=== PATIENT | female | born 1940 | race Caucasian/White ===

== ENCOUNTER 2022-03-23 14:25 | Emergency (ER) | payer MEDICARE, OTHER ==
[2022-03-23] MEDS ORDERED: ONDANSETRON 4 MG/2 ML VIAL IVP STA (15:28)
[2022-03-23] MEDS ORDERED: KETOROLAC 15 MG/ML 1 ML VIAL IVP STA (15:28)
[2022-03-23] MEDS ORDERED: diphenhydrAMINE 50 MG/ML 1 ML VIAL IVP STA (15:28)
[2022-03-23] MEDS ORDERED: SODIUM CHLORIDE 0.9% 500 ML 500 ML IV STA (15:28)
[2022-03-23] MEDS ORDERED: LIDOCAINE 5% PATCH TOPICAL SCH (15:30)
[2022-03-23] MEDS ORDERED: LORazepam 2 MG/ML INJ IV STA (15:30)
--- NOTE | 2022-03-23 18:31 | ED ---
General Adult HPI - General Chief complaint: Recheck/Abnormal Lab/Rx Stated complaint: migrane Time Seen by Provider: 03/23/22 14:52 Source: patient, EMS Mode of arrival: EMS Limitations: no limitations - History of Present Illness Initial comments: Patient is an 82 -year-old female who presents to the emergency department seeking medication refill. Patient states she recently moved to [place] from [place] tomorrow with her [id number]. States she was originally in a long-term or she was prescribed a fentanyl patch 30 mg every 3 days as well as daily Ativan. Patient states she did not get a prescription of these medications before leaving. She would like prescriptions of these medications today. States she uses fentanyl patch for chronic back pain. Denies recent injury. Currently anxious. Patient also mentions mild migraine. She normally takes Imitrex as abortive therapy which she is out of. States this migraine feels typical of her other migraines. Denies fever, chills, neck pain, double vision, blurry vision, numbness, tingling. Does admit to nausea. Denies vomiting. - Related Data Previous Rx's Medication Instructions Recorded SUMAtriptan succinate [Imitrex] 50 mg PO ONCE #7 tablet 03/23/22 Allergies Allergy/AdvReac Type Severity Reaction Status Date / Time Penicillins Allergy Unknown Rash/Hives Verified 03/23/22 18:34 Review of Systems ROS Statement: Those systems with pertinent positive or pertinent negative responses have been documented in the HPI. ROS Other: All systems not noted in ROS Statement are negative. General Exam Limitations: no limitations General appearance: alert, in no apparent distress Head exam: Present: atraumatic, normocephalic, normal inspection Eye exam: Present: normal appearance, PERRL, EOMI. Absent: scleral icterus, conjunctival injection, periorbital swelling Neck exam: Present: normal inspection, full ROM. Absent: tenderness, meningismus Respiratory exam: Present: normal lung sounds bilaterally. Absent: respiratory distress, wheezes, rales, rhonchi, stridor Cardiovascular Exam: Present: regular rate, normal rhythm, normal heart sounds. Absent: systolic murmur, diastolic murmur, rubs, gallop, clicks GI/Abdominal exam: Present: soft, normal bowel sounds. Absent: distended, tenderness, guarding, rebound, rigid Neurological exam: Present: alert, oriented X3, CN II-XII intact Psychiatric exam: Present: normal affect, normal mood Skin exam: Present: warm, dry, intact, normal color. Absent: rash Course Vital Signs 03/23/22 03/23/22 14:49 18:00 Temperature 97.0 F L Pulse Rate 80 81 Respiratory 17 18 Rate Blood Pressure 160/106 166/84 O2 Sat by Pulse 94 L 94 L Oximetry Medical Decision Making - Medical Decision Making This is a 82-year-old female presenting for medication refill and migraine. Patient given migraine cocktail and Ativan for anxiety. While receiving the medications she asked the nurse why she was not getting narcotics. Her migraine did improve. Patient and I discussed her medication refill requests in detail. I informed patient that I will give her one patch to wear today however I am unable to prescribe her this medication to go home with. I am willing to send a few Ativan 0.5 mg to get her through until she is able to establish care with a primary care provider. I will also prescribe a short course of Imitrex for migraine. She verbalizes understanding. Dr. Pat is my attending. Disposition Clinical Impression: Migraine, Encounter for medication refill Disposition: HOME SELF-CARE Condition: Good Instructions (If sedation given, give patient instructions): Migraine Headache (ED) Additional Instructions: Please take medication as directed. It is very important to establish with a primary care here who can prescribe your Ativan, Imitrex, and fentanyl patch long-term. Return to the emergency department if you experience new, concerning, or worsening symptoms. Prescriptions: SUMAtriptan succinate [Imitrex] 50 mg PO ONCE #7 tablet Is patient prescribed a controlled substance at d/c from ED?: Yes If prescribed controlled substance>3 days was MAPS reviewed?: Prescribed <3 Days Referrals: Nonstaff,Physician [Primary Care Provider] - 1-2 days Time of Disposition: 18:31
[2022-03-23 18:33] VITALS: BP 166/84; PULSE 81; RESP 18; TEMP 97
[2022-03-23] MEDS ORDERED: SUMAtriptan succinate 50 MG TAB PO STA (19:20)
== END 2022-03-23 20:46 | disposition home or self-care (01) ==
LOC: EC 14:25
DX: G43.909 Migraine, unspecified, not intractable, without status migrainosus (principal); Z76.0 Encounter for issue of repeat prescription; Z88.0 Allergy status to penicillin
CPT/HCPCS: 99283; 96374; 96375 ×3; 96361 ×2; J2060; J1200; J2405; J1885

== ENCOUNTER 2022-03-24 13:38 | Emergency (ER) | payer MEDICARE, OTHER ==
[2022-03-24 13:53] VITALS: RESP 18; TEMP 98.6
--- NOTE | 2022-03-24 14:13 | ED ---
General Adult HPI - General Chief complaint: Anxiety Stated complaint: anxiety, headache Time Seen by Provider: 03/24/22 13:52 Source: patient, EMS Mode of arrival: EMS Limitations: no limitations - History of Present Illness Initial comments: Dictation was produced using [employer] dictation software. please excuse any grammatical, word or spelling errors. Chief Complaint: 82-year-old male presents emergency department for hypertension and headache History of Present Illness: It is a 82-year-old female she was seen here yesterday for anxiety. Patient states she ran out of her anxiety medications. Patient's here today was 2 hours prior to arrival she again experiencing a headache. Patient is history of migraines but states that her headache is different from her usual headaches. According to chart review patient just moved here from [place]. Patient states she feels anxious. The ROS documented in this emergency department record has been reviewed and confirmed by me. Those systems with pertinent positive or negative responses have been documented in the HPI. All other systems are other negative and/or noncontributory. PHYSICAL EXAM: General Impression: Alert and oriented x3, not in acute distress HEENT: Normocephalic atraumatic, extra-ocular movements intact, pupils equal and reactive to light bilaterally, mucous membranes moist. Cardiovascular: Heart regular rate and rhythm Chest: Able to complete full sentences, no retractions, no tachypnea Abdomen: abdomen soft, non-tender, non-distended, no organomegaly Musculoskeletal: Pulses present and equal in all extremities, no peripheral edema Motor: no focal deficits noted Neurological: CN II-XII grossly intact, no focal motor or sensory deficits noted Skin: Intact with no visualized rashes Psych: Normal affect and mood ED course:82-year-old female presents emergency department for chief complaint of headache and hypertension. She reports that her symptoms started 2 hours prior to arrival. Patient also complaining of benzodiazepine withdrawal. Vital signs upon arrival shows blood pressure 180/104, rest of vital signs within acceptable limits. Patient reports that she takes medications for blood pressure. Computed tomography scan of brain is unremarkable. Patient evaluated bedside at 3:25 PM. Patient is within acceptable limits. Patient complaining that she is withdrawing from benzodiazepines. She is told to follow up with outpatient provider for outpatient management. Patient is showing signs of severe withdrawal. Blood pressure stable. Patient is not showing signs of hypertensive emergency. Critical Care: no Critical Care time: n/a - Related Data Previous Rx's Medication Instructions Recorded SUMAtriptan succinate [Imitrex] 50 mg PO ONCE #7 tablet 03/23/22 Allergies Allergy/AdvReac Type Severity Reaction Status Date / Time Penicillins Allergy Unknown Rash/Hives Verified 03/23/22 18:34 Review of Systems ROS Statement: Those systems with pertinent positive or pertinent negative responses have been documented in the HPI. ROS Other: All systems not noted in ROS Statement are negative. General Exam Limitations: no limitations Course Vital Signs 03/24/22 13:45 Temperature 98.6 F Pulse Rate 83 Respiratory 18 Rate Blood Pressure 188/104 O2 Sat by Pulse 95 Oximetry Disposition Clinical Impression: Benzodiazepine dependence Disposition: HOME SELF-CARE Condition: Fair Instructions (If sedation given, give patient instructions): Generalized Anxiety Disorder (ED), Benzodiazepine Abuse (ED) Is patient prescribed a controlled substance at d/c from ED?: No Referrals: Nonstaff,Physician [Primary Care Provider] - 1-2 days Time of Disposition: 15:26
--- NOTE | 2022-03-24 14:28 | CT ---
EXAMINATION TYPE: CT brain wo con DATE OF EXAM: 03/24/2022 COMPARISON: None HISTORY: headache CT DLP: 1115.4 mGycm Automated exposure control for dose reduction was used. There is cerebral cortical atrophy. There is moderate hypodensity throughout the periventricular whit e matter. There is no mass effect or midline shift. No sign of intracranial hemorrhage. The calvarium is intact. There is normal aeration of the mastoid sinuses. IMPRESSION: Cerebral atrophy and chronic small vessel ischemia. No acute intracranial abnormality.
[2022-03-24] MEDS ORDERED: LORazepam 2 MG/ML INJ IM STA (15:24)
[2022-03-24 17:43] VITALS: BP 182/68; PULSE 78
== END 2022-03-24 17:43 | disposition home or self-care (01) ==
LOC: EC 13:38
DX: F13.20 Sedative, hypnotic or anxiolytic dependence, uncomplicated (principal); Z88.0 Allergy status to penicillin
CPT/HCPCS: 70450; 99284; 96372; J2060

== ENCOUNTER 2022-03-26 08:44 | Emergency (ER) | payer MEDICARE, OTHER ==
[2022-03-26] MEDS ORDERED: SODIUM CHLORIDE 0.9% 1,000 ML IV STA ×2 (08:58)
[2022-03-26 09:00] VITALS: PULSE 73; TEMP 98.2
--- NOTE | 2022-03-26 09:02 | ED ---
Female Urogenital HPI - General Stated complaint: UTI Time Seen by Provider: 03/26/22 08:44 Source: patient, EMS, RN notes reviewed Mode of arrival: EMS - History of Present Illness Initial comments: 82-year-old female history UTI in the past who states she's had dysuria since yesterday now with nausea. She has lower abdominal pain also no overt fevers chills or sweats she does admit to decreased oral intake at least since chest today. She was noted by paramedics have an elevated blood pressure. She did take her medication she states this morning. No other complaints or modifying factors at this time MD Complaint: dysuria, other - Related Data Previous Rx's Medication Instructions Recorded SUMAtriptan succinate [Imitrex] 50 mg PO ONCE #7 tablet 03/23/22 Cephalexin [Keflex] 500 mg PO Q6HR 1 Days #40 cap 03/26/22 Allergies Allergy/AdvReac Type Severity Reaction Status Date / Time Penicillins Allergy Unknown Rash/Hives Verified 03/26/22 09:00 Review of Systems ROS Statement: Those systems with pertinent positive or pertinent negative responses have been documented in the HPI. ROS Other: All systems not noted in ROS Statement are negative. General Exam - General Exam Comments Initial Comments: This a well-developed nourished awake alert oriented 4 female General appearance: alert, in no apparent distress Head exam: Present: atraumatic, normocephalic, normal inspection Eye exam: Present: normal appearance, PERRL, EOMI. Absent: scleral icterus, conjunctival injection, periorbital swelling ENT exam: Present: mucous membranes dry Neck exam: Present: normal inspection. Absent: tenderness, meningismus, lympha denopathy Respiratory exam: Present: normal lung sounds bilaterally. Absent: respiratory distress, wheezes, rales, rhonchi, stridor Cardiovascular Exam: Present: regular rate, normal rhythm, normal heart sounds. Absent: systolic murmur, diastolic murmur, rubs, gallop, clicks GI/Abdominal exam: Present: soft, tenderness (Mild tenderness to palpation of the suprapubic region no guarding rebound masses or bruits), normal bowel sounds. Absent: distended, guarding, rebound, rigid Extremities exam: Present: normal inspection, full ROM, normal capillary refill. Absent: tenderness, pedal edema, joint swelling, calf tenderness Back exam: Present: normal inspection Neurological exam: Present: alert, oriented X3, CN II-XII intact Psychiatric exam: Present: normal affect, normal mood Skin exam: Present: warm, dry, intact, normal color. Absent: rash Course Vital Signs 03/26/22 08:52 Temperature 98.2 F Pulse Rate 73 Respiratory 18 Rate Blood Pressure 190/139 O2 Sat by Pulse 97 Oximetry Medical Decision Making - Medical Decision Making Patient blood pressure has responded to IV fluids patient believes she may be withdrawing because she did not get Ativan or fentanyl after she was discharged from a nursing facility 2 weeks ago. Patient does have an established physician who she is scheduled to see tomorrow. She will be discharged. We did discuss the fact that primary physician should be prescribing this type of medication on a long-term basis. She seemed to agree and understand. Additionally there is evidence of UTI she'll be placed on Keflex. She has had this before - Lab Data Result diagrams: 03/26/22 09:00 03/26/22 09:00 Lab Results 03/26/22 03/26/22 03/26/22 Range/Units 09:00 09:00 09:00 WBC 6.9 (3.8-10.6) k/uL RBC 5.46 H (3.80-5.40) m/uL Hgb 16.1 H (11.4-16.0) gm/dL Hct 48.7 H (34.0-46.0) % MCV 89.3 (80.0-100.0) fL MCH 29.5 (25.0-35.0) pg MCHC 33.0 (31.0-37.0) g/dL RDW 13.6 (11.5-15.5) % Plt Count 250 (150-450) k/uL MPV 7.6 Neutrophils % 52 % Lymphocytes % 37 % Monocytes % 6 % Eosinophils % 2 % Basophils % 1 % Neutrophils # 3.6 (1.3-7.7) k/uL Lymphocytes # 2.6 (1.0-4.8) k/uL Monocytes # 0.4 (0-1.0) k/uL Eosinophils # 0.2 (0-0.7) k/uL Basophils # 0.1 (0-0.2) k/uL Sodium 141 (137-145) mmol/L Potassium 4.1 (3.5-5.1) mmol/L Chloride 106 (98-107) mmol/L Carbon Dioxide 27 (22-30) mmol/L Anion Gap 8 mmol/L BUN 17 (7-17) mg/dL Creatinine 0.80 (0.52-1.04) mg/dL Est GFR (CKD-EPI)AfAm 80 (>60 ml/min/1.73 sqM) Est GFR (CKD-EPI)NonAf 70 (>60 ml/min/1.73 sqM) Glucose 100 H (74-99) mg/dL Calcium 9.8 (8.4-10.2) mg/dL Magnesium 1.9 (1.6-2.3) mg/dL Total Bilirubin 1.0 (0.2-1.3) mg/dL AST 28 (14-36) U/L ALT 14 (4-34) U/L Alkaline Phosphatase 87 (38-126) U/L Creatine Kinase 56 (30-135) U/L Troponin I (0.000-0.034) ng/mL Total Protein 7.5 (6.3-8.2) g/dL Albumin 4.6 (3.5-5.0) g/dL Lipase 87 (23-300) U/L Urine Color Light Yellow Urine Appearance Cloudy H (Clear) Urine pH 7.0 (5.0-8.0) Ur Specific [place] 1.014 (1.001-1.035) Urine Protein Negative (Negative) Urine Glucose (UA) Negative (Negative) Urine Ketones Negative (Negative) Urine Blood Negative (Negative) Urine Nitrite Negative (Negative) Urine Bilirubin Negative (Negative) Urine Urobilinogen <2.0 (<2.0) mg/dL Ur Leukocyte Esterase Moderate H (Negative) Urine RBC 1 (0-5) /hpf Urine WBC 20 H (0-5) /hpf Ur Squamous Epith Cells 2 (0-4) /hpf Urine Bacteria Occasional H (None) /hpf 03/26/22 Range/Units 09:00 WBC (3.8-10.6) k/uL RBC (3.80-5.40) m/uL Hgb (11.4-16.0) gm/dL Hct (34.0-46.0) % MCV (80.0-100.0) fL MCH (25.0-35.0) pg MCHC (31.0-37.0) g/dL RDW (11.5-15.5) % Plt Count (150-450) k/uL MPV Neutrophils % % Lymphocytes % % Monocytes % % Eosinophils % % Basophils % % Neutrophils # (1.3-7.7) k/uL Lymphocytes # (1.0-4.8) k/uL Monocytes # (0-1.0) k/uL Eosinophils # (0-0.7) k/uL Basophils # (0-0.2) k/uL Sodium (137-145) mmol/L Potassium (3.5-5.1) mmol/L Chloride (98-107) mmol/L Carbon Dioxide (22-30) mmol/L Anion Gap mmol/L BUN (7-17) mg/dL Creatinine (0.52-1.04) mg/dL Est GFR (CKD-EPI)AfAm (>60 ml/min/1.73 sqM) Est GFR (CKD-EPI)NonAf (>60 ml/min/1.73 sqM) Glucose (74-99) mg/dL Calcium (8.4-10.2) mg/dL Magnesium (1.6-2.3) mg/dL Total Bilirubin (0.2-1.3) mg/dL AST (14-36) U/L ALT (4-34) U/L Alkaline Phosphatase (38-126) U/L Creatine Kinase (30-135) U/L Troponin I 0.014 (0.000-0.034) ng/mL Total Protein (6.3-8.2) g/dL Albumin (3.5-5.0) g/dL Lipase (23-300) U/L Urine Color Urine Appearance (Clear) Urine pH (5.0-8.0) Ur Specific [place] (1.001-1.035) Urine Protein (Negative) Urine Glucose (UA) (Negative) Urine Ketones (Negative) Urine Blood (Negative) Urine Nitrite (Negative) Urine Bilirubin (Negative) Urine Urobilinogen (<2.0) mg/dL Ur Leukocyte Esterase (Negative) Urine RBC (0-5) /hpf Urine WBC (0-5) /hpf Ur Squamous Epith Cells (0-4) /hpf Urine Bacteria (None) /hpf - EKG Data -: EKG Interpreted by Me EKG shows normal: sinus rhythm EKG Comments: I did interpret the EKG shows a normal sinus rhythm of 70 AR interval 175 QRS duration 80 QT since QTC 460/[address]-T wave changes - Radiology Data Radiology results: image reviewed (I did interpret the imaging no acute processes seen.) Disposition Clinical Impression: Urinary tract infection, Episode of hypertension, Dehydration, Abdominal pain Disposition: HOME SELF-CARE Condition: Good Instructions (If sedation given, give patient instructions): Urinary Tract Infection in Women (ED), Dehydration (ED) Prescriptions: Cephalexin [Keflex] 500 mg PO Q6HR 1 Days #40 cap Is patient prescribed a controlled substance at d/c from ED?: No Referrals: Sonny Rodríguez MD [Primary Care Provider] - 03/27/22 1:00 pm Decision Date: 03/26/22 Decision Time: 11:51
[2022-03-26 09:31] LABS: Basophils # (A) 0.1 k/uL (0-0.2); Basophils % (A) 1 %; Eosinophils # (A) 0.2 k/uL (0-0.7); Eosinophils % (A) 2 %; HCT 48.7 % (34.0-46.0); HGB 16.1 gm/dL (11.4-16.0); Lymphocytes # (A) 2.6 k/uL (1.0-4.8); Lymphocytes % (A) 37 %; MCH 29.5 pg (25.0-35.0); MCV 89.3 fL (80.0-100.0); Mean Platelet Volume 7.6; Monocytes # (A) 0.4 k/uL (0-1.0); Monocytes % (A) 6 %; Neutrophils # (A) 3.6 k/uL (1.3-7.7); Neutrophils % (A) 52 %; Platelet Count 250 k/uL (150-450); RBC 5.46 m/uL (3.80-5.40); RDW 13.6 % (11.5-15.5); WBC 6.9 k/uL (3.8-10.6)
[2022-03-26 09:56] LABS: Albumin 4.6 g/dL (3.5-5.0); Appearance,Urine Cloudy (Clear); Bacteria,Urine Occasional /hpf; Bilirubin,Urine Negative (Negative); Blood,Urine Negative (Negative); Calcium 9.8 mg/dL (8.4-10.2); Color,Urine Light Yellow; Glucose,Urine (UA) Negative (Negative); Ketones,Urine Negative (Negative); Leukocyte Esterase,Urine Moderate (Negative); Magnesium 1.9 mg/dL (1.6-2.3); Nitrite,Urine Negative (Negative); Potassium 4.1 mmol/L (3.5-5.1); Protein,Urine Negative (Negative); RBC,Urine 1 /hpf (0-5); Specific Gravity,Urine 1.014 (1.001-1.035); Squamous Epithelial Cell,Urine 2 /hpf (0-4); Total Protein 7.5 g/dL (6.3-8.2); Urobilinogen,Urine <2.0 mg/dL (<2.0); WBC,Urine 20 /hpf (0-5)
--- NOTE | 2022-03-26 09:58 | XR ---
EXAMINATION TYPE: XR chest 2V DATE OF EXAM: 03/26/2022 9:53 AM COMPARISON: None TECHNIQUE: XR chest 2V Frontal and lateral views of the chest. CLINICAL INDICATION:Female, 82 years old with history of Nausea and abdominal pain; FINDINGS: Lungs/Pleura: There is no evidence of pleural effusion, focal consolidation, or pneumothorax. Chronic -appearing senescent parenchymal changes. Pulmonary vascularity: Unremarkable. Heart/mediastinum: Cardiomediastinal silhouette is unremarkable. Atherosclerotic calcifications are seen in the aorta. Musculoskeletal: Multiple level degenerative disc disease changes seen throughout the spine. Other: Surgical clips in the right upper quadrant. IMPRESSION: Chronic changes without evidence for acute cardiopulmonary process.
--- NOTE | 2022-03-26 09:59 | XR ---
EXAMINATION TYPE: XR KUB DATE OF EXAM: 03/26/2022 COMPARISON: NONE HISTORY: Nausea and abdominal pain TECHNIQUE: Upright AP view of the abdomen was obtained with 2 radiographs. FINDINGS: Small bowel demonstrates no evidence for dilatation or air fluid levels. Gas and fecal material is seen in non-distended colon. No convincing evidence for pneumoperitoneum. Surgical clips in the right upper quadrant. Likely pelvic phleboliths. Calcifications in the left upp er quadrant likely splenic granulomas. The lung bases are clear. The osseous structures are intact. Degenerative changes of the visualized spine. IMPRESSION: Overall nonobstructive bowel gas pattern.
[2022-03-26] MEDS ORDERED: cefTRIAXone IN SWFI 1,000 MG/10 ML SYRINGE IVP STA (10:18)
[2022-03-26] MEDS ORDERED: fentaNYL (PF) 50 MCG/ML 2 ML AMP IV STA (10:43)
[2022-03-26] MEDS ORDERED: LORazepam 1 MG TAB PO STA (11:51)
[2022-03-26 12:25] VITALS: BP 129/75; RESP 16
== END 2022-03-26 12:28 | disposition home or self-care (01) ==
LOC: EC 08:44
DX: N39.0 Urinary tract infection, site not specified (principal); I10 Essential (primary) hypertension; E86.0 Dehydration; R10.9 Unspecified abdominal pain; Z88.0 Allergy status to penicillin
CPT/HCPCS: 36415; 93005; 80053; 82550; 83690; 83735; 84484; 85025; 81001; 87086; 87077; 87186; 71046; 74018; 99284; 96374; 96375; 96361; J0696; J3010

== ENCOUNTER 2022-03-29 11:44 | Emergency (ER) | payer MEDICARE ==
[2022-03-29 11:56] VITALS: TEMP 97.7
[2022-03-29 11:58] VITALS: RESP 20
--- NOTE | 2022-03-29 12:19 | ED ---
General Adult HPI - General Chief complaint: Headache Stated complaint: Headache Time Seen by Provider: 03/29/22 11:47 Source: patient Mode of arrival: EMS Limitations: no limitations - History of Present Illness Initial comments: Dictation was produced using [employer] dictation software. please excuse any grammatical, word or spelling errors. Chief Complaint: 82-year-old female recently well-known to emergency Department for history of benzodiazepine dependence presents to the ER for 2 hours of headache History of Present Illness: 82-year-old female presents via EMS. Patient presents to the ER department for chief complaint of 2 hours of headache. This is patient's fourth visit here in the last 4 days. States that she is here today cut she's has a headache. States his whole cranial. She also reports associated anxiety. The ROS documented in this emergency department record has been reviewed and confirmed by me. Those systems with pertinent positive or negative responses have been documented in the HPI. All other systems are other negative and/or noncontributory. PHYSICAL EXAM: General Impression: Alert and oriented x3, not in acute distress HEENT: Normocephalic atraumatic, extra-ocular movements intact, pupils equal and reactive to light bilaterally, mucous membranes moist. Cardiovascular: Heart regular rate and rhythm Chest: Able to complete full sentences, no retractions, no tachypnea Abdomen: abdomen soft, non-tender, non-distended, no organomegaly Musculoskeletal: Pulses present and equal in all extremities, no peripheral edema Motor: no focal deficits noted Neurological: CN II-XII grossly intact, no focal motor or sensory deficits noted Skin: Intact with no visualized rashes Psych: Normal affect and mood ED course: 82-year-old male presents to the emergency department for headache and anxiety. Vital signs upon arrival are within acceptable limits. Chart review was performed. Patient is presented to our emergency department 4 times in the last 4 days. Computed tomography scan is unremarkable. Patient discharged. Critical Care: no Critical Care time: n/a - Related Data Previous Rx's Medication Instructions Recorded SUMAtriptan succinate [Imitrex] 50 mg PO ONCE #7 tablet 03/23/22 Cephalexin [Keflex] 500 mg PO Q6HR 1 Days #40 cap 03/26/22 Allergies Allergy/AdvReac Type Severity Reaction Status Date / Time Penicillins Allergy Unknown Rash/Hives Verified 03/26/22 09:00 Review of Systems ROS Statement: Those systems with pertinent positive or pertinent negative responses have been documented in the HPI. ROS Other: All systems not noted in ROS Statement are negative. Past Medical History Past Medical History: Cancer, COPD, Hypertension Additional Past Medical History / Comment(s): Ulcerative colitits, hiatal hernia, cervical cancer History of Any Multi-Drug Resistant Organisms: C-DIFF Date of last positivie culture/infection: 2017 Past Surgical History: Back Surgery, Cholecystectomy, Joint Replacement, Orthopedic Surgery Past Psychological History: Anxiety Smoking Status: Former smoker Past Alcohol Use History: None Reported Past Drug Use History: None Reported General Exam Limitations: no limitations Course Vital Signs 03/29/22 03/29/22 11:50 11:56 Temperature 97.7 F Pulse Rate 116 H 116 H Respiratory 18 20 Rate Blood Pressure 99/76 99/76 O2 Sat by Pulse 96 96 Oximetry Disposition Clinical Impression: Headache Disposition: HOME SELF-CARE Condition: Good Instructions (If sedation given, give patient instructions): Acute Headache (ED) Is patient prescribed a controlled substance at d/c from ED?: No Referrals: None,Stated [Primary Care Provider] - 1-2 days Time of Disposition: 12:53
--- NOTE | 2022-03-29 12:45 | CT ---
EXAMINATION TYPE: CT brain wo con DATE OF EXAM: 03/29/2022 COMPARISON: 03/24/2022 HISTORY: 82-year-old female headache for 2 hours TECHNIQUE: Examination was done in axial plane without intravenous contrast. Coronal and sagittal r econstructions performed. CT DLP: 1125.4 mGycm Automated exposure control for dose reduction was used. FINDINGS: There is no evidence of acute intracranial hemorrhage, acute ischemic changes, mass, mass-effect, or extra-axial fluid collection. There is no effacement of cerebral sulci or basal subarachnoid cister ns. There is no midline shift. Kamara-white matter distinction is preserved. Moderate to severe bifrontal cerebral atrophy. Mild hydrocephalus, Infante ratio calculated at 0.34, un changed from recent prior. Confluent white matter hypodensities in both cervical hemispheres. Partia lly empty sella. Scattered mild mucosal thickening ethmoid air cells. Leftward nasal septal deviation. Mastoid air saman ls are pneumatized. The globes are intact. IMPRESSION: 1. Similar mild hydrocephalus likely on an ex vacuo basis from central cerebral atrophy. Correlate to exclude a component of NPH. There is also moderate to severe bifrontal cerebral atrophy. 2. Severe confluent burden of chronic small vessel ischemic disease. Stable exam from recent prior; n o acute intracranial abnormality seen. 3. Mild chronic ethmoid sinus disease.
[2022-03-29 12:53] VITALS: BP 100/60
[2022-03-29 13:40] VITALS: PULSE 90
== END 2022-03-29 13:40 | disposition home or self-care (01) ==
LOC: EC 11:44
DX: R51.9 Headache, unspecified (principal); J44.9 Chronic obstructive pulmonary disease, unspecified; I10 Essential (primary) hypertension; F41.9 Anxiety disorder, unspecified; Z87.891 Personal history of nicotine dependence; Z88.0 Allergy status to penicillin
CPT/HCPCS: 70450; 99285

== ENCOUNTER 2022-03-30 09:56 | Emergency (ER) | payer MEDICARE ==
[2022-03-30 10:12] VITALS: RESP 18
--- NOTE | 2022-03-30 10:26 | ED ---
General Adult HPI - General Chief complaint: Psychiatric Symptoms Stated complaint: Suicidal Time Seen by Provider: 03/30/22 09:58 Source: patient Mode of arrival: EMS - History of Present Illness Initial comments: Dictation was produced using [employer] dictation software. please excuse any grammatical, word or spelling errors. Chief Complaint: 82-year-old female presents to the emergency room for suicidal ideation. History of Present Illness: Patient is a 82-year-old female well-known to emergency department for benzodiazepine dependence. She is here today for suicidal ideation. This patient's fifth visit in the last week. States that she is suicidal. She does not have a specific plan. No homicidal ideation. No visual auditory hallucinations. The ROS documented in this emergency department record has been reviewed and confirmed by me. Those systems with pertinent positive or negative responses have been documented in the HPI. All other systems are other negative and/or noncontributory. PHYSICAL EXAM: General Impression: Alert and oriented x3, not in acute distress HEENT: Normocephalic atraumatic, extra-ocular movements intact, pupils equal and reactive to light bilaterally, mucous membranes moist. Cardiovascular: Heart regular rate and rhythm Chest: Able to complete full sentences, no retractions, no tachypnea Musculoskeletal: Pulses present and equal in all extremities, no peripheral edema Motor: no focal deficits noted Neurological: CN II-XII grossly intact, no focal motor or sensory deficits noted Skin: Intact with no visualized rashes Psych: Normal affect and mood ED course: 82-year-old female presents emergency department for suicidal ideation. Vital signs upon arrival are within acceptable limits per physical ex amination is benign. This is patient's fifth visit to the emergency department in the last 7 days. Patient is well-known to me. I saw her on 3 separate occasions. She has history of benzodiazepine dependence. Chart review was performed Patient evaluated by EPS and cleared for discharge. Patient reevaluated at bedside at 1:45 PM findings to medical condition. Critical Care: no Critical Care time: n/a - Related Data Previous Rx's Medication Instructions Recorded SUMAtriptan succinate [Imitrex] 50 mg PO ONCE #7 tablet 03/23/22 Cephalexin [Keflex] 500 mg PO Q6HR 1 Days #40 cap 03/26/22 Allergies Allergy/AdvReac Type Severity Reaction Status Date / Time Penicillins Allergy Unknown Rash/Hives Verified 03/30/22 10:11 Review of Systems ROS Statement: Those systems with pertinent positive or pertinent negative responses have been documented in the HPI. ROS Other: All systems not noted in ROS Statement are negative. Past Medical History Past Medical History: Cancer, COPD, Hypertension Additional Past Medical History / Comment(s): Ulcerative colitits, hiatal hernia, cervical cancer History of Any Multi-Drug Resistant Organisms: C-DIFF Date of last positivie culture/infection: 2017 Past Surgical History: Back Surgery, Cholecystectomy, Joint Replacement, Orthopedic Surgery Past Psychological History: Anxiety Smoking Status: Former smoker Past Alcohol Use History: None Reported Past Drug Use History: None Reported Course Vital Signs 03/30/22 10:04 Temperature 97.8 F Pulse Rate 98 Respiratory 18 Rate Blood Pressure 132/99 O2 Sat by Pulse 95 Oximetry Disposition Clinical Impression: Suicidal ideation Disposition: HOME SELF-CARE Condition: Fair Instructions (If sedation given, give patient instructions): Depression in Older Adults (ED) Is patient prescribed a controlled substance at d/c from ED?: No Referrals: None,Stated [Primary Care Provider] - 1-2 days Time of Disposition: 13:45
--- NOTE | 2022-03-30 14:04 | P.CN ---
Psychiatric Consult - . Consult date: 03/30/22 Consult:: 03/30/22 13:43 Psychiatric assessment Patient was seen in the ED by this provider for further history. Patient is A&Ox4. In addition to the history provided by EPS and chart review, patient states that her primary complaint is pain. She understands that she needs to follow up with the primary care provider for this concern. However, she lives with a [id number] and she has been having difficulty with transportation. On risk assessment, patient denies suicidal ideation, homicidal ideation, as asked and assessed. However, patient made vague suicidal threat that she needs to receive opioid medications and does not feel like living in pain. She is future oriented and says she is excited to spend time with her great- grandchildren who live in [place]. She spontaneously denies any plans for self injury or suicide attempt. She denies a history of suicide attempts and access to firearms. She does not endorse auditory and visual hallucinations. Mental Status Exam: General Appearance: Patient appears to be stated age is alert, directable, and cooperative. Behavior: Patient is calmly seated without any agitated behavior. Speech: Patient's speech is fluent and nonpressured. Mood/Affect: Mood is frustrated, affect is congruent. Suicidality/Homicidality: Patient denies having any suicidal or homicidal ideation intent or plan. Perceptions: Patient denies any visual hallucinations and denies any auditory hallucinations Though content/process: There is no evidence of any delusional thought content and thought process is linear and goal-directed. Memory and concentration: AOX3, grossly intact for the purposes of this session Judgment and insight: Fair Assessment & Plan: -Patient DOES NOT meet criteria for inpatient psychiatric admission. -Patient appears to have decision making capacity at this time -Patient interested in nursing homes and says [id number] has been looking for her. Encouraged her to follow-up with this and to find PCP. -Med management per ED -Discussed case with EPS RN. She was provided list for outpatient mental health providers and discussed safety plan in case of decompensation.
[2022-03-30 16:15] VITALS: BP 134/96; PULSE 96; TEMP 98
== END 2022-03-30 16:15 | disposition home or self-care (01) ==
LOC: EC 09:56
DX: R45.851 Suicidal ideations (principal); J44.9 Chronic obstructive pulmonary disease, unspecified; I10 Essential (primary) hypertension; F41.9 Anxiety disorder, unspecified; Z87.891 Personal history of nicotine dependence; Z88.0 Allergy status to penicillin
CPT/HCPCS: 82075; 99285

== ENCOUNTER 2022-04-02 13:42 | Emergency (ER) | payer MEDICARE ==
[2022-04-02 14:27] VITALS: TEMP 98
[2022-04-02] MEDS ORDERED: SODIUM CHLORIDE 0.9% 500 ML 500 ML IV STA (17:29)
[2022-04-02] MEDS ORDERED: ONDANSETRON 4 MG/2 ML VIAL IVP STA (17:29)
[2022-04-02 18:03] LABS: Basophils % (A) 1 %; Eosinophils # (A) 0.1 k/uL (0-0.7); Eosinophils % (A) 1 %; HCT 46.7 % (34.0-46.0); HGB 15.9 gm/dL (11.4-16.0); Lymphocytes # (A) 2.2 k/uL (1.0-4.8); Lymphocytes % (A) 41 %; MCH 30.6 pg (25.0-35.0); MCHC 33.9 g/dL (31.0-37.0); MCV 90.1 fL (80.0-100.0); Monocytes # (A) 0.4 k/uL (0-1.0); Monocytes % (A) 7 %; Neutrophils # (A) 2.5 k/uL (1.3-7.7); Neutrophils % (A) 46 %; Platelet Count 242 k/uL (150-450); RBC 5.19 m/uL (3.80-5.40); RDW 13.8 % (11.5-15.5); WBC 5.3 k/uL (3.8-10.6)
[2022-04-02 18:15] VITALS: RESP 18
[2022-04-02 18:24] LABS: Albumin 4.4 g/dL (3.5-5.0); Calcium 9.5 mg/dL (8.4-10.2); Potassium 3.7 mmol/L (3.5-5.1); Total Bilirubin 0.7 mg/dL (0.2-1.3); Total Protein 7.1 g/dL (6.3-8.2)
--- NOTE | 2022-04-02 18:33 | XR ---
EXAMINATION TYPE: XR KUB DATE OF EXAM: 04/02/2022 6:01 PM INDICATION: Patient age:Female; 82 years old; Reason for study: pain; COMPARISON: None. TECHNIQUE: One radiographic view of the abdomen was obtained. FINDINGS: Right upper quadrant cholecystectomy clips. The bowel gas pattern is nonspecific without di lated loops of small or large bowel. There is no evidence for organomegaly or pneumoperitoneum. The osseous structures are intact. No abnormal calcifications are present. Fecal material and gas are de monstrated throughout the colon and rectum. IMPRESSION: Nonspecific bowel gas pattern without radiographic evidence for acute process.
--- NOTE | 2022-04-02 18:58 | ED ---
General Adult HPI <Rsoeline Loomis Melani - Last Filed: 04/03/22 00:31> - General Source: patient Mode of arrival: EMS Limitations: no limitations <Bree Mireles - Last Filed: 04/03/22 21:26> - General Chief complaint: Nausea/Vomiting/Diarrhea Stated complaint: EPS eval Time Seen by Provider: 04/02/22 17:19 - History of Present Illness Initial comments: Patient is an 82-year-old female presenting with chief complaint of nausea and vomiting. Patient states symptoms have been ongoing for the past few days. Patient currently has a UTI, she has been unable to take her Keflex as she has been vomiting. She admits to diffuse abdominal discomfort. No chest pain or difficulty breathing. No fever or chills. No diarrhea, hematochezia, melena. No flank pain. No palpitations or weakness. (Bree Mireles) - Related Data Previous Rx's Medication Instructions Recorded SUMAtriptan succinate [Imitrex] 50 mg PO ONCE #7 tablet 03/23/22 Cephalexin [Keflex] 500 mg PO Q6HR 1 Days #40 cap 03/26/22 Nitrofurantoin Monohyd/M-Cryst 100 mg PO Q12HR 5 Days #10 cap 04/02/22 [Macrobid] Allergies Allergy/AdvReac Type Severity Reaction Status Date / Time Penicillins Allergy Unknown Rash/Hives Verified 03/30/22 10:11 Review of Systems ROS Other: All systems not noted in ROS Statement are negative. <Roseline Loomis Melani - Last Filed: 04/03/22 00:31> ROS Other: All systems not noted in ROS Statement are negative. <Bree Mireles - Last Filed: 04/03/22 21:26> ROS Statement: Those systems with pertinent positive or pertinent negative responses have been documented in the HPI. Past Medical History Past Medical History: Cancer, COPD, Hypertension Additional Past Medical History / Comment(s): Ulcerative colitits, hiatal hernia, cervical cancer History of Any Multi-Drug Resistant Organisms: C-DIFF Date of last positivie culture/infection: 2017 Past Surgical History: Back Surgery, Cholecystectomy, Joint Replacement, Orthopedic Surgery Past Psychological History: Anxiety Smoking Status: Former smoker Past Alcohol Use History: None Reported Past Drug Use History: None Reported <Bree Mireles - Last Filed: 04/03/22 21:26> General Exam Limitations: no limitations General appearance: alert, in no apparent distress Head exam: Present: atraumatic, normocephalic, normal inspection Eye exam: Present: normal appearance Neck exam: Present: normal inspection Respiratory exam: Present: normal lung sounds bilaterally. Absent: respiratory distress, wheezes, rales, rhonchi, stridor Cardiovascular Exam: Present: regular rate, normal rhythm, normal heart sounds. Absent: systolic murmur, diastolic murmur, rubs, gallop, clicks GI/Abdominal exam: Present: soft. Absent: distended, tenderness, guarding, rebound, rigid Neurological exam: Present: alert, oriented X3, CN II-XII intact Psychiatric exam: Present: normal affect, normal mood Skin exam: Present: warm, dry, intact, normal color. Absent: rash <Bree Mireles - Last Filed: 04/03/22 21:26> Course Vital Signs 04/02/22 04/02/22 04/02/22 14:23 18:15 20:23 Temperature 98 F Pulse Rate 100 78 87 Respiratory 20 18 18 Rate Blood Pressure 152/81 146/76 129/84 O2 Sat by Pulse 96 98 95 Oximetry 04/02/22 23:50 Temperature Pulse Rate 90 Respiratory 18 Rate Blood Pressure 215/103 O2 Sat by Pulse 95 Oximetry Medical Decision Making - Lab Data Result diagrams: 04/02/22 17:48 04/02/22 17:48 <Roseline Loomis - Last Filed: 04/03/22 00:31> - Lab Data Result diagrams: 04/02/22 17:48 04/02/22 17:48 <Bree Mireles - Last Filed: 04/03/22 21:26> - Medical Decision Making Patient was evaluated by myself. Comes into the emergency department requesting fentanyl and Xanax. States that she lived in [place] and has moved here to live with her [id number]. Does not like the environment that she is living in. She did not contact a paint roller covermaker in order to ensure that her medications would not be disrupted. She has subsequently run out of her fentanyl and Xanax. States that her chronic pain in her back has been acting up on her. This is the patient's sixth visit in 8 days. When questioning the patient why she hasn't called to make an appointment, she has no response. She did make a comment to the PA that she was suicidal because her pain was so severe. She has been evaluated by EPS and cleared for discharge. We did call the patient's family to inform them that she would not be staying in the hospital. Family states that they don't want the patient living with them anymore. Unfortunately the patient has no clinical reason to be admitted to the hospital and needs to follow-up in the outpatient setting for further manag ement. I will provide her with one fentanyl patch at this time. She is given referral information for Dr. Pollard and Dr. Brand. Highly stressed that she called to make an appointment with them for her chronic pain medication needs. Patient discharged home (Roseline Loomis) Patient is an 82-year-old female presenting with chief complaint of nausea and vomiting. Patient was recently diagnosed with UTI and treated with Keflex. Urine culture shows resistance to Keflex, patient will be switched to Macrobid. No flank pain. Patient is requesting benzodiazepines and narcotics. CBC shows no leukocytosis or anemia. BUN and creatinine are WNL. Amylase and lipase are WNL. Coronavirus influenza are negative. KUB x-rays negative for any acute process. Patient is refusing abdominal CT at this time, stating that she had one yesterday at [facility] that showed no change. Patient is stating that her symptoms are "making her want to ". EPS assessment is ordered. I endorsed this patient to my attending Dr. Loomis who will be taking over care of this patient. (Bree Mireles) - Lab Data Lab Results 04/02/22 04/02/22 04/02/22 Range/Units 17:48 17:48 18:51 WBC 5.3 (3.8-10.6) k/uL RBC 5.19 (3.80-5.40) m/uL Hgb 15.9 (11.4-16.0) gm/dL Hct 46.7 H (34.0-46.0) % MCV 90.1 (80.0-100.0) fL MCH 30.6 (25.0-35.0) pg MCHC 33.9 (31.0-37.0) g/dL RDW 13.8 (11.5-15.5) % Plt Count 242 (150-450) k/uL MPV 8.0 Neutrophils % 46 % Lymphocytes % 41 % Monocytes % 7 % Eosinophils % 1 % Basophils % 1 % Neutrophils # 2.5 (1.3-7.7) k/uL Lymphocytes # 2.2 (1.0-4.8) k/uL Monocytes # 0.4 (0-1.0) k/uL Eosinophils # 0.1 (0-0.7) k/uL Basophils # 0.0 (0-0.2) k/uL Sodium 136 L (137-145) mmol/L Potassium 3.7 (3.5-5.1) mmol/L Chloride 103 (98-107) mmol/L Carbon Dioxide 23 (22-30) mmol/L Anion Gap 10 mmol/L BUN 11 (7-17) mg/dL Creatinine 0.78 (0.52-1.04) mg/dL Est GFR (CKD-EPI)AfAm 83 (>60 ml/min/1.73 sqM) Est GFR (CKD-EPI)NonAf 72 (>60 ml/min/1.73 sqM) Glucose 105 H (74-99) mg/dL Calcium 9.5 (8.4-10.2) mg/dL Total Bilirubin 0.7 (0.2-1.3) mg/dL AST 38 H (14-36) U/L ALT 17 (4-34) U/L Alkaline Phosphatase 88 (38-126) U/L Total Protein 7.1 (6.3-8.2) g/dL Albumin 4.4 (3.5-5.0) g/dL Amylase 38 (30-110) U/L Lipase 65 (23-300) U/L Coronavirus (PCR) (Not Detectd) Influenza Type A RNA Not Detected (Not Detectd) Influenza Type B (PCR) Not Detected (Not Detectd) 04/02/22 Range/Units 18:51 WBC (3.8-10.6) k/uL RBC (3.80-5.40) m/uL Hgb (11.4-16.0) gm/dL Hct (34.0-46.0) % MCV (80.0-100.0) fL MCH (25.0-35.0) pg MCHC (31.0-37.0) g/dL RDW (11.5-15.5) % Plt Count (150-450) k/uL MPV Neutrophils % % Lymphocytes % % Monocytes % % Eosinophils % % Basophils % % Neutrophils # (1.3-7.7) k/uL Lymphocytes # (1.0-4.8) k/uL Monocytes # (0-1.0) k/uL Eosinophils # (0-0.7) k/uL Basophils # (0-0.2) k/uL Sodium (137-145) mmol/L Potassium (3.5-5.1) mmol/L Chloride (98-107) mmol/L Carbon Dioxide (22-30) mmol/L Anion Gap mmol/L BUN (7-17) mg/dL Creatinine (0.52-1.04) mg/dL Est GFR (CKD-EPI)AfAm (>60 ml/min/1.73 sqM) Est GFR (CKD-EPI)NonAf (>60 ml/min/1.73 sqM) Glucose (74-99) mg/dL Calcium (8.4-10.2) mg/dL Total Bilirubin (0.2-1.3) mg/dL AST (14-36) U/L ALT (4-34) U/L Alkaline Phosphatase (38-126) U/L Total Protein (6.3-8.2) g/dL Albumin (3.5-5.0) g/dL Amylase (30-110) U/L Lipase (23-300) U/L Coronavirus (PCR) Not Detected (Not Detectd) Influenza Type A RNA (Not Detectd) Influenza Type B (PCR) (Not Detectd) Disposition Is patient prescribed a controlled substance at d/c from ED?: No Time of Disposition: 23:23 <Roseline Loomis - Last Filed: 04/03/22 00:31> <Bree Mireles - Last Filed: 04/03/22 21:26> Clinical Impression: Opiate dependence, Depression, Episode of hypertension, Suicidal ideation Disposition: HOME SELF-CARE Condition: Stable Instructions (If sedation given, give patient instructions): Chronic Back Pain (DC) Additional Instructions: You need to call to make an appointment with a pain management doctor. You have been provided with referrals. Your medications cannot be refilled in the emergency department as you require a physician that has the proper license. Prescriptions: Nitrofurantoin Monohyd/M-Cryst [Macrobid] 100 mg PO Q12HR 5 Days #10 cap Referrals: Avery Brand MD [STAFF PHYSICIAN] - 1-2 days Jeny Pollard MD [Medical Doctor] - 1-2 days
[2022-04-02] MEDS ORDERED: KETOROLAC 15 MG/ML 1 ML VIAL IVP STA (19:20)
[2022-04-02] MEDS ORDERED: METOCLOPRAMIDE 5 MG/ML 2 ML VIAL IVP STA (19:20)
[2022-04-02] MEDS ORDERED: NITROFURANTOIN MONOHYD/M-CRYST 100 MG CAP PO STA (19:22)
[2022-04-02] MEDS ORDERED: hydrOXYzine HCL 50 MG/ML 1 ML VIAL IM STA (19:46)
[2022-04-02 23:50] VITALS: BP 215/103; PULSE 90
== END 2022-04-03 00:38 | disposition home or self-care (01) ==
LOC: EC 13:42
DX: F11.20 Opioid dependence, uncomplicated (principal); R45.851 Suicidal ideations; I10 Essential (primary) hypertension; J44.9 Chronic obstructive pulmonary disease, unspecified; F41.9 Anxiety disorder, unspecified; Z87.891 Personal history of nicotine dependence; Z88.0 Allergy status to penicillin; Z20.822 Contact with and (suspected) exposure to COVID-19; Z90.49 Acquired absence of other specified parts of digestive tract
CPT/HCPCS: 99284; 96374; 96375 ×2; 96361; 96372; 36415; 80053; 82150; 83690; 85025; 87502; 87635; 74018; J2765; J2405; J3410; J1885